=== PATIENT | female | born 1980 | race Caucasian/White ===

== ENCOUNTER 2022-11-30 17:43 | Emergency (ER) | payer MEDICAID ==
[~2022-11-30] VITALS: Ht 172.7 cm; Wt 88.6 kg
[2022-11-30] MEDS ORDERED: ONDANSETRON 4 MG/2 ML (SDV) Z0FRAN IVP STA (18:17)
[2022-11-30] MEDS ORDERED: fentaNYL INJ 100 MCG/2 ML AMP IVP STA (18:17)
[2022-11-30] MEDS ORDERED: NS IV 1000 ML 1,000 ML IV STA (18:17)
[2022-11-30 18:21] LABS: BILIRUBIN,URINE NEGATIVE (NEGATIVE); CLARITY,URINE CLEAR; COLOR,URINE YELLOW; GLUCOSE, URINE (UA) NEGATIVE (NEGATIVE); KETONES,URINE NEGATIVE (NEGATIVE); LEUKOCYTE ESTERASE ,URINE NEGATIVE (NEGATIVE); NITRITE,URINE NEGATIVE (NEGATIVE); PROTEIN,URINE NEGATIVE (NEGATIVE)
[2022-11-30 18:27] LABS: BACTERIA,URINE TRACE /HPF; RBC,URINE 25-50 /HPF
[2022-11-30 18:28] LABS: BASOPHILS # (AUTO) 0.1 10^3/uL (0.0-0.1); BASOPHILS % (AUTO) 1 % (0-10); EOSINOPHILS # (AUTO) 0.1 10^3/uL (0.0-0.3); EOSINOPHILS % (AUTO) 1 % (0-10); HEMATOCRIT 34 % (35-52); HEMOGLOBIN 10.6 g/dL (11.5-16.0); LYMPHOCYTES # (AUTO) 2.1 10^3/uL (1.0-4.0); LYMPHOCYTES % (AUTO) 31 % (12-44); MEAN CORPUSCULAR HEMOGLOBIN 22 pg (25-34); MEAN CORPUSCULAR HGB CONC 31 g/dL (32-36); MEAN CORPUSCULAR VOLUME 70 fL (80-99); MONOCYTES # (AUTO) 0.3 10^3/uL (0.0-1.0); MONOCYTES % (AUTO) 5 % (0-12); NEUTROPHILS # (AUTO) 4.2 10^3/uL (1.8-7.8); NEUTROPHILS % (AUTO) 62 % (42-75); PLATELET COUNT 193 10^3/uL (130-400); WHITE BLOOD COUNT 6.7 10^3/uL (4.3-11.0)
--- NOTE | 2022-11-30 18:41 | ED Abdominal Pain ---
General Chief Complaint: Abdominal/GI Problems Stated Complaint: LOWER L ABD PAIN,HEADACHE,NAUSEA Nursing Triage Note: PT AMBULATE TO ROOM FSOF WITHOUT DIFFICULTY WITH C/O LEFT SIDE ABD PAIN AND NAUSEA X2 DAYS. Source of Information: Patient History of Present Illness Date Seen by Provider: Nov 30, 2022 Time Seen by Provider: 17:47 Initial Comments 42-year-old female presenting with complaints of left sided abdominal pain and nausea x2 days. She states that she has a history of pelvic cystic kidney disease, polycystic ovary disease, asthma, GERD. She takes chronic oxycodone pain medicine for pain from her cysts on the kidneys and ovaries. She states that she is taking 3 of her oxycodone in the last 24 hours with out any relief in her pain. She has previously had a ruptured ovarian cyst on the right that required surgery to drain fluid. She is waiting on a gynecology consult to [place] from her primary care provider out of [facility]. She move to [facility] but due to her complicated medical history she continues to follow with her PCP from [facility]. She denies any change in her bowels. Currently on her menstrual cycle. Timing/Duration: 1-2 Days Severity/Quality: Severe, Sharp Location: LUQ, LLQ, Flank (left) Activities at Onset: None Modifying Factors: Worsens With Movement, Worsens With Palpation Associated Symptoms: No Chest Pain, No Diaphoresis, No Fever/Chills, No Fatigue, No Headache, No Heartburn; Nausea/Vomiting; No Shortness of Air, No Swelling/Mass in Abdomen, No Syncope, No Weakness Allergies and Home Medications Allergies Coded Allergies: cephalexin (Verified Allergy, Unknown, 11/30/22) sulfamethoxazole (Verified Allergy, Unknown, 11/30/22) trimethoprim (Verified Allergy, Unknown, 11/30/22) NSAIDS (Non-Steroidal Anti-Inflamma (Verified Adverse Reaction, Unknown, 11/30/22) Polycystic Kidney Disease and told to not take NSAIDS Patient Home Medication List Home Medication List Reviewed: Yes Ondansetron (Ondansetron Odt) 4 Mg Tab.rapdis, 4 MG PO Q6H PRN for NAUSEA/VOMITING Prescribed by: JEROD ARAUJO on 11/30/222006 Review of Systems Review of Systems Constitutional: No chills, No fever EENTM: No Symptoms Reported Respiratory: No Symptoms Reported Cardiovascular: No Symptoms Reported Gastrointestinal: See HPI Genitourinary: See HPI Musculoskeletal: no symptoms reported Skin: No change in color Psychiatric/Neurological: Anxiety Past Agikvav-Pqjquo-Tocfkb Hx Patient Social History Tobacco Use?: No Smoking Status: Never a Smoker Smokeless Tobacco Frequency: Never a User Use of E-Cig and/or Vaping dev: No Use of E-Cig and/or Vaping Ezequiel: Never a User Substance use?: No Alcohol Use?: No Pt feels they are or have been: No Past Medical History Surgery/Hospitalization HX: Polycystic Kidney Disease, Multiple ovaries on cysts, Asthma Physical Exam Vital Signs Vital Signs - First Documented 11/30/22 17:50 Temp 36.4 Pulse 95 Resp 19 B/P (MAP) 152/93 (112) O2 Delivery Room Air Capillary Refill : Less Than 3 Seconds Height/Weight/BMI Height: '" Weight: lbs. oz. kg; 29.00 BMI Method: General Appearance: WD/WN, mild distress HEENT: PERRL/EOMI Neck: non-tender, full range of motion, supple, normal inspection Respiratory: chest non-tender, lungs clear, normal breath sounds Cardiovascular: normal peripheral pulses, regular rate, rhythm Gastrointestinal: normal bowel sounds, soft, no pulsatile mass; No distended, No guarding, No rebound; tenderness (LLQ and left flank pain with palpation) Rectal: deferred Extremities: normal range of motion, non-tender, normal capillary refill Back: CVA tenderness (L) Neurologic/Psychiatric: alert, oriented x 3 Skin: normal color, warm/dry Progress/Results/Core Measures Results/Orders Lab Results Laboratory Tests Test 11/30/22 17:50 11/30/22 18:13 Range/Units Urine Color YELLOW Urine Clarity CLEAR Urine pH 6.0 5-9 Urine Specific [place] 1.010 L 1.016-1.022 Urine Protein NEGATIVE NEGATIVE Urine Glucose (UA) NEGATIVE NEGATIVE Urine Ketones NEGATIVE NEGATIVE Urine Nitrite NEGATIVE NEGATIVE Urine Bilirubin NEGATIVE NEGATIVE Urine Urobilinogen 0.2 < = 1.0 MG/DL Urine Leukocyte Esterase NEGATIVE NEGATIVE Urine RBC (Auto) 2+ H NEGATIVE Urine RBC 25-50 H /HPF Urine WBC 5-10 H /HPF Urine Squamous Epithelial Cells 2-5 /HPF Urine Crystals NONE /LPF Urine Bacteria TRACE /HPF Urine Casts NONE /LPF Urine Mucus NEGATIVE /LPF Urine Culture Indicated NO White Blood Count 6.7 4.3-11.0 10^3/uL Red Blood Count 4.87 3.80-5.11 10^6/uL Hemoglobin 10.6 L 11.5-16.0 g/dL Hematocrit 34 L 35-52 % Mean Corpuscular Volume 70 L 80-99 fL Mean Corpuscular Hemoglobin 22 L 25-34 pg Mean Corpuscular Hemoglobin Concent 31 L 32-36 g/dL Red Cell Distribution Width 19.5 H 10.0-14.5 % Platelet Count 193 130-400 10^3/uL Mean Platelet Volume 9.0-12.2 fL Immature Granulocyte % (Auto) 0 % Neutrophils (%) (Auto) 62 42-75 % Lymphocytes (%) (Auto) 31 12-44 % Monocytes (%) (Auto) 5 0-12 % Eosinophils (%) (Auto) 1 0-10 % Basophils (%) (Auto) 1 0-10 % Neutrophils # (Auto) 4.2 1.8-7.8 10^3/uL Lymphocytes # (Auto) 2.1 1.0-4.0 10^3/uL Monocytes # (Auto) 0.3 0.0-1.0 10^3/uL Eosinophils # (Auto) 0.1 0.0-0.3 10^3/uL Basophils # (Auto) 0.1 0.0-0.1 10^3/uL Immature Granulocyte # (Auto) 0.0 0.0-0.1 10^3/uL Percent Immature Platelet Fraction 13.9 H 0.0-7.6 % Sodium Level 137 135-145 MMOL/L Potassium Level 3.9 3.6-5.0 MMOL/L Chloride Level 103 98-107 MMOL/L Carbon Dioxide Level 20 L 21-32 MMOL/L Anion Gap 14 5-14 MMOL/L Blood Urea Nitrogen 9 7-18 MG/DL Creatinine 0.79 0.60-1.30 MG/DL Estimat Glomerular Filtration Rate 96 BUN/Creatinine Ratio 11 Glucose Level 155 H 70-105 MG/DL Calcium Level 9.5 8.5-10.1 MG/DL Corrected Calcium 9.3 8.5-10.1 MG/DL Total Bilirubin 0.4 0.1-1.0 MG/DL Aspartate Amino Transf (AST/SGOT) 11 5-34 U/L Alanine Aminotransferase (ALT/SGPT) 9 0-55 U/L Alkaline Phosphatase 57 40-136 U/L Total Protein 7.5 6.4-8.2 GM/DL Albumin 4.3 3.2-4.5 GM/DL Lipase 17 8-78 U/L My Orders Orders - JEROD ARAUJO MD Ua Culture If Indicated (11/30/22 17:50) Urine Bedside (11/30/22 17:50) Comprehensive Metabolic Panel (11/30/22 18:15) Lipase (11/30/22 18:15) Ed Iv/Invasive Line Start (11/30/22 18:15) Cbc With Automated Diff (11/30/22 18:15) Ct Abdomen/Pelvis Wo (11/30/22 18:15) Ns Iv 1000 Ml (Sodium Chloride 0.9%) (11/30/22 18:17) Ondansetron Injection (Zofran Injectio (11/30/22 18:17) Fentanyl Inj (Sublimaze Injection) (11/30/22 18:17) Dexamethasone Injection (Decadron Injec (11/30/22 18:17) Rx-Ondansetron Po (Rx-Zofran Po) (11/30/22 20:15) Medications Given in ED Current Medications Medications Dose Ordered Sig/Fer Route Start Time Stop Time Status Last Admin Dose Admin Ondansetron HCl 4 mg Q6H PRN PO 11/30/22 20:15 11/30/22 20:14 DC 11/30/22 20:13 4 MG Vital Signs/I&O 11/30/22 17:50 Temp 36.4 Pulse 95 Resp 19 B/P (MAP) 152/93 (112) O2 Delivery Room Air Blood Pressure Mean: 112 Progress Progress Note #1: Progress Note Potential diagnosis of ovarian cyst, diverticulitis, colitis, pyelonephritis, renal colic, cystitis. Obtain peripheral IV access and send labs for complete blood count, comprehensive metabolic profile, lipase, urinalysis, bedside test. Her bedside test was negative. Sent for CT scan without IV contrast since she has history of polycystic kidney disease and see if they see any fluid collection or pathology to be causing her left flank pain. Normal saline 1 L IV fluid bolus for hydration, dexamethasone 4 mg IV for anti-inflammatory effect since she is unable to take NSAIDs, Zofran 4 mg IV for nausea vomiting, fentanyl 50 mcg IV for pain refractory to oxycodone. Progress Note #2: Time: 18:51 Progress Note Complete blood count shows white blood cell count of 6.7, hemoglobin of 10.6 and platelets of 193. She has urinalysis showing a specific gravity of 1.010 with 25-50 red blood cells consistent with her being on her menstrual cycle currently. Comprehensive metabolic panel did not show any acute significant electrolyte abnormality to account for her pain. I reviewed the radiologist francisco javier dumas on the CT scan of the abdomen and pelvis without contrast. They did not see the any definite ovarian cyst on the left side or fluid collection or pathology to account for her pain and concerns. When I reviewed all this with the patient she became tearful and said that she was frustrated with dealing with this pain. She is waiting on the bdc manager from the [facility] to get back with her about consult. Her primary provider Dr. Abarca is on maternity leave so she is working with Dr. Juarez. She reports that the pain medicine and treatment here had helped a little bit but she was still having pain. She was advised that she could increase the Oxycodone 5 mg pills to 2 pills every 4 hours as needed for severe pain for next 48 hours. She could take acetaminophen to help with pain as well. Given order for outpatient ultrasound if she wants to come back tomorrow, or she could check with the PCP and bdc manager from [place] about being seen up there. Given Zofran 4 mg odt 1 tab every 6 hours prn n/v sent with 4 pills tonight and script to [facility] for 2 additional days of zofran 4 mg q 6 hours prn n/v. Diagnostic Imaging Diagonstic Imaging: CT Plain Films/CT/US/NM/MRI: abdomen, pelvis Comments NAME: AJIT SAUNDERSMECHE R MED REC#: [id number] PT STATUS: REG ER : 1980 PHYSICIAN: JEROD ARAUJO MD ADMIT DATE: 11/30/22/ER FS Draft Date of Exam:11/30/22 CT ABDOMEN/PELVIS WO PROCEDURE: CT abdomen and pelvis without contrast. TECHNIQUE: Multiple contiguous axial images were obtained through the abdomen and pelvis without the use of intravenous contrast. Auto Exposure Controls were utilized during the CT exam to meet ALARA standards for radiation dose reduction. INDICATION: Left flank pain. COMPARISON: No comparison is available. FINDINGS: The lung bases demonstrate no evidence of pneumonia or edema. There is no pleural or pericardial effusion. The liver demonstrates no focal intrahepatic abnormality. The gallbladder is nondistended. There are no radiodense gallstones or findings of biliary dilatation. The spleen is normal. Pancreas is unremarkable. There is no adrenal mass. There are multiple low-density and numerous hyperdense lesions demonstrated throughout both of the kidneys, likely reflecting cysts and hemorrhagic cysts. There is no evidence of urolithiasis or hydronephrosis. There is no evidence of a stone within the collecting system. The ureters are normal in caliber. The urinary bladder is nondistended. The stomach is nondistended. There is no small or large bowel dilation present to suggest bowel obstruction. The appendix is normal. There is moderate stool within the colon. There is no abnormal colonic thickening. The uterus is normal. There is no identifiable low-density left ovarian cyst. The right ovary is not evident. There is no adenopathy. There is no free air. There is no free fluid. Aorta is normal in caliber. There is no acute osseous abnormality. IMPRESSION: 1. Numerous low density and numerous hyperdense lesions demonstrated throughout both of the kidneys suggesting multiple simple and hemorrhagic cysts. These are incompletely characterized on this noncontrast examination. Follow-up ultrasound or MRI could be considered for dedicated follow-up renal evaluation. 2. No current findings of urolithiasis or hydronephrosis. 3. No bowel obstruction. There is no appendicitis. 4. No current evidence of a left-sided ovarian cyst. The right ovary could not be identified. 5. No evidence of an acute inflammatory or obstructive process. Dictated on workstation # [id number] Dict: 11/30/22 1836 Trans: 11/30/22 1844 [facility] [id number] Interpreted by: MARLON BISHOP MD Electronically signed by: Reviewed: Reviewed by Me Departure Impression Primary Impression: Acute left flank pain Additional Impression: Left lower quadrant abdominal pain Disposition: 01 HOME, SELF-CARE Condition: Stable Departure-Patient Inst. Decision time for Depature: 20:03 Referrals: MAGNOLIA ABARCA DO (PCP/Family) Primary Care Physician Patient Instructions: Flank Pain ED, Pelvic Pain ED Add. Discharge Instructions: The tests do not show any definite ovarian cyst or fluid collection to indicate a ruptured ovarian cyst. Your labs show anemia with Hemoglobin 10.6 but no signs of infection or electrolyte abnormality. Radiology did not see any kidney stones or inflammation/infection with the colon. Continue with pain medicine and nausea medicine. You could call in the am to Radiology Scheduling and bring order with you to have pelvic ultrasound to further evaluate your ovary and pain in left lower abdomen/pelvis. Call [phone] after 7 am tomorrow morning and let them know you have an order for ultrasound and that you want to have it done here in [place]. They should be able to get you a time to come and have the test done. You need to bring your paper order with you. They will let the Emergency Department doctor know if they see anything abnormal that needs to be addressed otherwise they can get the results to Dr. Abarca's office and physician covering for her while she is on Maternity leave. In the meantime you could take your Oxycodone 5 mg pills as 2 pills or 10 mg every 4 hours as needed for severe pain. You could also take acetaminophen (Tylenol) 650 mg every 6 hours to try and help with pain. Take the dissolving nausea medicine, Zofran or Ondansetron, 4 mg every 6 hours as needed for nausea and vomiting. With taking higher dose of narcotic consider taking a laxative such as Miralax or Dulcolax to help stimulate your bowels to move because the narcotics can cause slowing of the bowels and contribute to constipation. All discharge instructions reviewed with patient and/or family. Voiced understanding. Scripts Ondansetron (Ondansetron Odt) 4 Mg Tab.rapdis 4 MG PO Q6H PRN for NAUSEA/VOMITING for 2 Days, #8 TAB 0 Refills Prov: JEROD ARAUJO MD 11/30/22 JEROD ARAUJO MD Nov 30, 2022 18:41
[2022-11-30 18:42] LABS: ALBUMIN 4.3 GM/DL (3.2-4.5); BILIRUBIN,TOTAL 0.4 MG/DL (0.1-1.0); CALCIUM 9.5 MG/DL (8.5-10.1); CREATININE SERUM 0.79 MG/DL (0.60-1.30); POTASSIUM 3.9 MMOL/L (3.6-5.0); TOTAL PROTEIN 7.5 GM/DL (6.4-8.2)
--- NOTE | 2022-11-30 18:44 | Diagnostic Imaging Report ---
PROCEDURE: CT abdomen and pelvis without contrast. TECHNIQUE: Multiple contiguous axial images were obtained through the abdomen and pelvis without the use of intravenous contrast. Auto Exposure Controls were utilized during the CT exam to meet ALARA standards for radiation dose reduction. INDICATION: Left flank pain. COMPARISON: No comparison is available. FINDINGS: The lung bases demonstrate no evidence of pneumonia or edema. There is no pleural or pericardial effusion. The liver demonstrates no focal intrahepatic abnormality. The gallbladder is nondistended. There are no radiodense gallstones or findings of biliary dilatation. The spleen is normal. Pancreas is unremarkable. There is no adrenal mass. There are multiple low-density and numerous hyperdense lesions demonstrated throughout both of the kidneys, likely reflecting cysts and hemorrhagic cysts. There is no evidence of urolithiasis or hydronephrosis. There is no evidence of a stone within the collecting system. The ureters are normal in caliber. The urinary bladder is nondistended. The stomach is nondistended. There is no small or large bowel dilation present to suggest bowel obstruction. The appendix is normal. There is moderate stool within the colon. There is no abnormal colonic thickening. The uterus is normal. There is no identifiable low-density left ovarian cyst. The right ovary is not evident. There is no adenopathy. There is no free air. There is no free fluid. Aorta is normal in caliber. There is no acute osseous abnormality. IMPRESSION: 1. Numerous low density and numerous hyperdense lesions demonstrated throughout both of the kidneys suggesting multiple simple and hemorrhagic cysts. These are incompletely characterized on this noncontrast examination. Follow-up ultrasound or MRI could be considered for dedicated follow-up renal evaluation. 2. No current findings of urolithiasis or hydronephrosis. 3. No bowel obstruction. There is no appendicitis. 4. No current evidence of a left-sided ovarian cyst. The right ovary could not be identified. 5. No evidence of an acute inflammatory or obstructive process. Dictated by: Dictated on workstation # [id number]
[2022-11-30] MEDS ORDERED: ONDA4TAB11 PO (20:07)
[2022-11-30 20:14] VITALS: BP 145/86
[2022-11-30] MEDS ORDERED: RX-ONDANSETRON 4 MG ODT (ZOFRAN) PPK #4 PO PRN (20:15)
== END 2022-11-30 20:14 | disposition home or self-care (01) ==
LOC: ER FS 17:45
DX: R10.32 Left lower quadrant pain (principal); Q61.9 Cystic kidney disease, unspecified; E28.2 Polycystic ovarian syndrome; Z79.1 Long term (current) use of non-steroidal anti-inflammatories (NSAID); Z88.6 Allergy status to analgesic agent; Z28.310 Unvaccinated for COVID-19
CPT/HCPCS: 36415; 74176; 80053; 81000; 83690; 84703; 85025